=== PATIENT | female | born 1960 | race Caucasian/White ===

== ENCOUNTER 2022-05-11 16:54 | Emergency (ER) | payer BC, SELFPAY ==
[2022-05-11 16:57] VITALS: PULSE 63; RESP 18; TEMP 37; O2SAT 99
[2022-05-11 17:00] VITALS: BP 151/70
--- NOTE | 2022-05-11 17:45 | DI.RAD_ITS ---
Exam(s) XR RIBS RT W PA LAT CHEST EXAM: XR RIBS RT W PA LAT CHEST CLINICAL HISTORY: fall skiing TECHNIQUE: 2D digital imaging was performed.Five images were obtained. COMPARISON: No exams were available for comparison FINDINGS: MEDIASTINUM: Normal. HEART: Normal. PULMONARY VASCULATURE: Normal. LUNGS: Clear. PLEURAL SPACE: No pleural effusion or pneumothorax. BONE:Normal. RIGHT RIBS: There is a moderately displaced fracture of the lateral aspect of the right 9th rib. OTHER FINDINGS:Normal. IMPRESSION: 1. No acute pulmonary findings. 2. There is a moderately displaced fracture of the lateral aspect of the right 9th rib. DATA REPOSITORY: RADIATION DOSE DELIVERED:
--- NOTE | 2022-05-11 17:47 | W.ED.GENAD ---
Discharge Plan Disposition Patient Disposition: Home Condition: Stable Discharge Details Clinical Impression: Rib fracture Primary Care Provider: None,None ED Provider: Savanna Johnson Home Meds and New Rx's Prescriptions: No Action No Known Home Meds Discharge Instructions Instructions: Rib Fracture (ED) Additional Instructions: Your xray showed 9th rib fracture. Please encourage deep breathing and use the incentive spirometer as instructed by nursing staff. Please encourage hydration. Please continue with Tylenol and ibuprofen as needed for discomfort. You may use the lidocaine patches to help with discomfort, these are available [id number]. Please follow-up with primary care in the next 1 to 2 weeks for reevaluation. If you develop shortness of breath, difficulty breathing, fever/chills or other new/worsening symptom please seek care urgently once again. Medical Decision Making Patient is a pleasant 61-year-old female, accompanied by her , with chief complaint of right-sided rib pain. She reports that prior to arrival she was skiing and she fell after catching a tip and landing on the right side. She denies striking her head. She was helmeted at the time of the incident. No loss of consciousness. Denies any neck pain or back pain. Has had localized right sided mid rib pain. Has not had previous fractures or chest wall surgeries. Denies any nausea or vomiting or abdominal pain. On exam, patient appears nontoxic. She is breathing comfortably. She does deny any shortness of breath. Her lungs are clear. No midline pain or step-offs C, T, L spine. She does have some focal pain near the seventh rib laterally on the right side. No palpable deformity. No crepitus. No pain with AP chest compression. No abdominal discomfort. We will give Tylenol and ibuprofen for discomfort she is hydrating in the room. We will also obtain chest x-ray to evaluate for potential fracture. FINDINGS: Lungs: Unremarkable. No consolidation. Pleural spaces: Unremarkable. No pleural effusion. No pneumothorax. Heart/Mediastinum: Unremarkable. No cardiomegaly. Bones/joints: There is a moderately displaced fracture of the lateral aspect of the right 9th rib. No other acute fracture evident. IMPRESSION: Moderately displaced right 9th rib fracture Discussed the findings with patient and her . Advised supportive care. We will give this incentive spirometer. Encourage deep breathing. Return precautions discussed. We discussed pain management she feels that Tylenol, ibuprofen and topical options will be sufficient for her. She is from [place], we will send her home with copy of her imaging. All of her questions and concerns were addressed and she is in agreement this plan. HPI General Date/Time Provider Initiated Documentation: 05/11/22 17:40. Limitations to Documentation: no limitations. Information obtained by: patient, family and RN notes reviewed. History of Present Illness 61 year old F presents to the emergency department with the chief complaint of right sided rib, described as moderate, Quality is described as aching and sharp, and is localized to the chest (right lateral chest wall). Patient reports no radiation. Patient started experiencing this minute(s) and it has been constant. Immobilization improves symptom(s), (standing) Movement worsens symptoms (laying flat) . Patient notes no other symptoms.; denies cough, diaphoresis, fever/chills, nausea/vomiting, rash and shortness of breath. Patient did receive the following treatments prior to arrival, none Related Data Home Medications Medication Instructions Recorded Confirmed Unknown [No Known Home Meds] 10/30/15 05/11/22 Allergies Allergy/AdvReac Type Severity Reaction Status Date / Time Sulfa (Sulfonamide Allergy Intermediate Skin Rash Unverified 05/11/22 17:00 Antibiotics) General Stated Complaint: Orthopedic ANUM: 4 Review of Systems Constitutional Constitutional: Reports as per HPI, Denies chills, Denies fever(s), Denies headache(s), Denies lethargy and Denies poor appetite Eyes Eyes: Denies change in vision ENT Ears, Nose, Mouth, and Throat: Denies headache(s) Cardiovascular Cardiovascular: Reports as per HPI and Denies dyspnea Respiratory Respiratory: Reports as per HPI, Denies chest congestion, Denies cough and Denies dyspnea Gastrointestinal Gastrointestinal: Reports as per HPI and Denies abdominal pain Musculoskeletal Musculoskeletal: Reports as per HPI and Denies back pain Integumentary/Breasts Skin/Breast: Reports as per HPI and Denies rash Neurologic Neurologic: Reports as per HPI and Denies headache(s) PFSH All Active Problems (Updated 05/11/22 @ 19:43 by PASCALE Seay) Rib fracture (Acute) Social History Smoking/Tobacco Use Status: Never Smoking risk assessment performed?: Yes Alcohol Intake: current Alcohol Intake frequency: holidays/special occasions only Drug use: Never Substance use type: does not use Do you feel safe at home: Yes Do you feel safe in your relationship?: Yes Exam Const General: cooperative, healthy appearing, comfortable, no acute distress and well developed Nutritional Appearance: average body habitus and well nourished Orientation: alert, awake and oriented x3 [facility] Head: normal to inspection Ears: hearing grossly normal bilaterally Mouth: moist mucous membranes Chest Chest: normal inspection of the chest, normal palpation of entire chest wall, no crepitus and tenderness (right 7th rib lateral right side) Resp Effort & Inspection: normal respiratory effort, able to speak in complete sentences and no respiratory distress Auscultation: clear to auscultation bilaterally, no rales, no rhonchi and no wheezes Cardio Rate: regular rate Rhythm: regular rhythm Heart Sounds: S1 normal and S2 normal GI Inspection: normal to inspection, no edema and non-distended Palpation: soft, no hepatosplenomegaly, not firm, no guarding, not rigid and nontender Auscultation: normal bowel sounds Back/Spine/Pelvis Back: no CVA tenderness Cervical Spine: normal cervical lordosis, cervical ROM normal, No pain with cervical ROM and No step off deformity Thoracic/Lumbar Spine: thoracic and lumbar spine normal to inspection, No thoracic spinal tenderness and No lumbar spinal tenderness Skin General skin exam: no rashes or lesions noted Trauma: no lacerations or abrasions Neuro General: patient alert, patient awake and patient oriented x3 Cognition: normal cognition Speech: speech normal Gait: normal gait Extrem General: normal to inspection, capillary refill normal, no pedal edema, no calf tenderness and normal gait Psych Appearance: grossly normal and well kempt Mental Status: mental status grossly normal Speech and Movement: speech and movement normal Course Vital Signs Vital signs: Vital Signs Temperature 37.0 C 05/11/22 16:57 Pulse 63 05/11/22 16:57 Respiratory Rate 18 05/11/22 16:57 Pulse Oximetry 99 05/11/22 16:57 Temperature 37.0 C 05/11/22 16:57 Temperature Source Oral 05/11/22 16:57 Pulse 63 05/11/22 16:57 Respiratory Rate 18 05/11/22 16:57 Respiratory Effort Normal, Non-Labored 05/11/22 16:59 Blood Pressure 151/70 H 05/11/22 17:00 Pulse Oximetry 99 05/11/22 16:57 Oxygen Delivery Method Room Air 05/11/22 16:57 Oxygen Flow Rate 0 05/11/22 16:57
[2022-05-11] MEDS: Ibuprofen 600 MG TAB PO (18:20)
[2022-05-11] MEDS: Acetaminophen 325 MG TAB 650 MG PO (18:20)
--- NOTE | 2022-05-11 18:45 | DI.VRAD_ITS ---
PROCEDURE INFORMATION: Exam: XR Right Ribs Exam date and time: 05/11/2022 6:04 PM Age: 61 years old Clinical indication: Injury or trauma; Other: Skiing accident; Rib area; Blunt trauma (contusions or hematomas) TECHNIQUE: Imaging protocol: Radiologic exam of the right ribs. Views: 2 views. COMPARISON: No relevant prior studies available. FINDINGS: Bones/joints: Moderate degenerative disc changes noted throughout the thoracic spine. Soft tissues: Normal. IMPRESSION: No acute cardiopulmonary pathology PROCEDURE INFORMATION: Exam: XR Chest Exam date and time: 05/11/2022 6:04 PM Age: 61 years old Clinical indication: Injury or trauma; Other: Skiing accident; Rib area; Blunt trauma (contusions or hematomas) TECHNIQUE: Imaging protocol: Radiologic exam of the chest. Views: 2 views. COMPARISON: No relevant prior studies available. FINDINGS: Lungs: Unremarkable. No consolidation. Pleural spaces: Unremarkable. No pleural effusion. No pneumothorax. Heart/Mediastinum: Unremarkable. No cardiomegaly. Bones/joints: There is a moderately displaced fracture of the lateral aspect of the right 9th rib. No other acute fracture evident. IMPRESSION: Moderately displaced right 9th rib fracture Dictated and Authenticated by: Bryson Elliott MD. Ordering:VAUGHN Corrales MD
[2022-05-11] MEDS: Lidocaine 5% Patch 1 PATCH TP (19:46)
[2022-05-11 19:53] VITALS: BP 134/82; PULSE 64; RESP 18; O2SAT 100
== END 2022-05-11 19:55 | disposition home or self-care (01) ==
PROVIDERS: Emergency Provider Physician Assistant
DX: S22.31XA Fracture of one rib, right side, initial encounter for closed fracture (principal); V00.311A Fall from snowboard, initial encounter; Y93.23 Activity, snow (alpine) (downhill) skiing, snowboarding, sledding, tobogganing and snow tubing
CPT/HCPCS: 99283; 71046; 71100; 99284